=== PATIENT | female | born 1945 | race Caucasian/White ===

== ENCOUNTER → 2017-09-24 | Day surgery (SDC) | payer OTHER ==
[2017-09-21 14:57] LABS: BASOPHILS % 0.5 % (0.0-1.0); EOSINOPHILS # (AUTO) 0.1 (0.0-0.4); EOSINOPHILS % 1.4 % (0.0-6.0); HEMATOCRIT 38.8 % (34.2-44.1); HEMOGLOBIN 13.2 g/dL (12.0-16.0); LYMPHOCYTES # (AUTO) 1.6 (1.0-3.2); LYMPHOCYTES % 18.5 % (18.0-39.1); MEAN CORPUSCULAR HEMOGLOBIN 30.7 pg (28-32); MEAN CORPUSCULAR VOLUME 90.2 fL (81-99); MONOCYTES # (AUTO) 0.5 (0.2-0.8); MONOCYTES % 6.1 % (4.4-11.3); NEUTROPHILS # (AUTO) 6.2 (2.1-6.9); NEUTROPHILS % 73.3 % (38.7-80.0); PLATELET COUNT 223 x10e3/uL (140-360); RED CELL DISTRIBUTION WIDTH 13.2 % (11.7-14.4)
[2017-09-21 15:15] LABS: ANION GAP 13.8 mmol/L (8-16); CREATININE, SERUM 1.18 mg/dL (0.57-1.11); POTASSIUM 3.8 mmol/L (3.5-5.1)
[2017-09-21 15:16] LABS: CALCIUM 8.9 mg/dL (8.4-10.2)
--- NOTE | 2017-09-21 16:01 | Diagnostic Imaging Report ---
PROCEDURE:CHEST 2 VIEWS TECHNIQUE:PA and lateral chest INDICATION:Preoperative evaluation COMPARISON:None. FINDINGS: Lungs are clear and symmetrically inflated. No pleural effusions. Normal heart size, mediastinal contour and pulmonary vasculature. Postoperative sequela of CABG, with intact midline wires. Intact skeleton. Benign-appearing sclerotic lesion in the proximal right humerus. CONCLUSION: No acute abnormality. Dictated by: James Oliveira M.D. on 09/21/2017 at 16:01 Electronically approved by: James Oliveira M.D. on 09/21/2017 at 16:01
[~2017-09-24] MED LIST: BELLADONNA/OPIUM 60 MG SUPP PR ONE; CEFTRIAXONE SOD 1 GM VIAL ONE; DEXAMETHASONE SOD PHOS INJ 4 MG/ML VIAL ONE; EPHEDRINE SULFATE INJ 50 MG/10 ML SYR ONE; FENTANYL CITRATE/PF 100MCG/2 ML INJ ONE; FLOMAX0.4 MG PO; GLYCOPYRROLATE INJ 1MG/ 5 ML SYR ONE; IOPAMIDOL 300MG/ML 50ML INFUS..BTL IV ONE; LEVEMIR100 UNIT/1 SC; LIDOCAINE HCL 2% LOCAL INJ 5 ML SDV VIAL INJ ONE; LISINOPRIL10 MG PO; METFORMIN HCL500 M2 PO; METOPROLOL TART25 MG PO; MIDAZOLAM HCL 2 MG/2 ML VIAL ONE; ONDANSETRON HCL INJ 2 MG/ML VIAL ONE; PRAVASTATIN SOD40 MG PO; PROPOFOL IV EMULSION 10 MG/ML 20 ML VIAL ONE; SEVOFLURANE INHAL SOLN 250 ML PEN BTL ONE; ULTRAM 50MG50 MG PO
--- OUTSIDE RECORDS SUMMARY | 2017-09-25 09:51 | XMS REPORT ---
Author [facility] Address Unknown Phone Unavailable Care Team Providers Care Drafter Name Role Phone VICKY ARREGUIN Unavailable Unavailable Problems This patient has no known problems. Allergies, Adverse Reactions, Alerts This patient has no known allergies or adverse reactions. Medications This patient has no known medications. Results Test Description Test Time Test Comments Text Results Atomic Results Result Comments CHEST 2 VIEWS [place] [id number] Patient Name: MEIR YADAV MR #: [id number] : 1945 Age/Sex: 72/F Req # : [id number] Adm Physician: Ordered by: VICKY ARREGUIN MD Report #: [id number] Location: OR Room/Bed: Procedure: [id number] DX/CHEST 2 VIEWS Exam Date: 09/21/17 Exam Time : 1546 REPORT STATUS: Signed PROCEDURE: CHEST 2 VIEWS TECHNIQUE: PA and lateral chest INDICATION: Preoperative evaluation COMPARISON: None. FINDINGS: Lungs are clear and symmetrically inflated. No pleural effusions. Normal heart size, mediastinal contour and pulmonary vasculature. Postoperative sequela of CABG, with intact midline wires. Intact skeleton. Benign-appearing sclerotic lesion in the proximal right humerus. CONCLUSION: No acute abnormality. Dictated by: Zoë Oliveira M.D. on 09/21/2017 at 16:01 Electronically approved by: Zoë Oliveira M.D. on 09/21/2017 at 16:01 Dictated By: ZOË OLIVEIRA MD 1601 Transcribed By: EYAL on 09/21/17 1601 COPY TO: VICKY ARREGUIN MD
--- OUTSIDE RECORDS SUMMARY | 2017-09-25 09:51 | XMS REPORT ---
Author Organization Unknown Address [address] [place] [address] Phone [phone] Care Team Providers Care Aeroplane Pilot Name Role Phone ADALI "RIMMA" LESLIE OVALLE 3 [phone] NORBERTO MARK MD 115 [phone] ARSLAN EVANS 59 Unavailable Allergies Code Code System Name Reaction Severity Status Onset 369836 RxNorm Bactrim Active Notes: MORPHINE- DOES NOT WORK Medications Name Status Start Date Stop Date acetaminophen 300 mg-codeine 30 mg tablet Completed 01/07/2017 Contour Next EZ Meter Completed 01/19/2017 Contour Next Strips Active Not available Eliquis 5 mg tablet Completed 06/17/2017 esomeprazole magnesium 40 mg capsule,delayed release Active Not available fluorouracil 5 % topical cream Completed 01/19/2017 gabapentin 100 mg capsule Completed 02/04/2017 hyoscyamine 0.125 mg sublingual tablet Completed 01/07/2017 Januvia 100 mg tablet Completed 01/19/2017 Levemir FlexTouch U-100 Insulin 100 unit/mL (3 mL) subcutaneous pen Active Not available lisinopril 20 mg tablet Active Not available metformin 500 mg tablet Active Not available metoprolol succinate ER 25 mg tablet,extended release 24 hr Completed metoprolol tartrate 25 mg tablet Active Not available metronidazole 500 mg tablet Take 1 tablet 3 times a day by oral route for 10 days. Completed 2016 Microlet Lancet Active Not available naproxen 500 mg tablet Take 1 tablet twice a day by oral route. Completed 01/19/2017 Neurontin 300 mg capsule Take 1 capsule 3 times a day by oral route. Completed 06/17/2017 nitrofurantoin monohydrate/macrocrystals 100 mg capsule Completed 2016 ondansetron 8 mg disintegrating tablet Completed 01/07/2017 Pen Needle 29 gauge x 1/2" TAKE DIRECTED Active Not available pravastatin 40 mg tablet Completed 08/31/2017 promethazine 12.5 mg tablet Take 1 tablet 4 times a day by oral route for 10 days. Completed 2017 promethazine 25 mg tablet Take 1 tablet every 4 hours by oral route. Completed 05/12/2016 Relion Pen 29 X 1/2" [facility] [place] Completed 05/12/2016 rosuvastatin 40 mg tablet Active Not available sodium citrate-citric acid 500 mg-334 mg/5 mL oral solution take 1 tablespoon by mouth twice a day Completed 01/07/2017 Soma 350 mg tablet Take 1 tablet every day by oral route at bedtime for 30 days. Active 2017 Not available sulfamethoxazole 800 mg-trimethoprim 160 mg tablet Completed 01/07/2017 tamsulosin 0.4 mg capsule Active Not available tramadol 50 mg tablet Active Not available triamcinolone acetonide 0.1 % lotion Active Not available triamcinolone acetonide 0.1 % topical cream Apply 1 g every day by topical route as needed for 15 days. Active Not available Problems Name Status Onset Date Source Type 2 Diabetes Mellitus Unknown 05/12/2016 Hypercholesterolemia Unknown 05/12/2016 Malignant Hypertensive Chronic Kidney Disease Active 05/12/2016 Kidney Disease Unknown 05/12/2016 Atherosclerosis of Aorta Active 01/19/2017 Pancreatitis Active 01/26/2017 Type 2 Diabetes Mellitus Active 06/17/2017 Hyperlipidemia Active 06/17/2017 Procedures Date Name Performed by Colonoscopy Notes: 2010 Information not available Hysterectomy (Partial) Notes: 1977 Information not available 05/12/2016 MAMMO, Screening, Digital, Bilateral [facility] ([facility]) [address] [place] [address] (Work Place) 05/12/2016 Electrocardiogram [facility] [address] [facility] [address] [place] [id number] (Work Place) 05/12/2016 Bone Density [facility] ([facility]) [address] [place], [place] [id number] (Work Place) 06/26/2016 CT, Abdomen + Pelvis, W/ Contrast Information not available 07/08/2016 CT, Abdomen + Pelvis, W/wo Contrast Information not available 01/07/2017 MAMMO, Screening, Bilateral [facility] ([facility]) [address] [place], [place] [id number] (Work Place) 01/07/2017 Bone Density [facility] ([facility]) [address] [place] [address] (Work Place) 08/31/2017 CT, Abdomen + Pelvis, W/ Contrast [facility] ([facility]) [address] [place] [address] (Work Place) Notes: PARTIAL CERVIXECTOMY - 1961 L URETERAL STENT - DR. MARK S/P TRIPLE BYPASS - 1998 PARATHYROIDECTOMY - 2005 LAP-SUGEY - 02/2016 Lab Results Date Name Specimen Result Interpretation Description Value Range Status Address 08/31/2017 Culture, Urine Culture, Urine, Routine see note Final [facility]: [address] [place] [address], [place] 08/31/2017 Urinalysis, Dipstick Color Color light yellow [facility]: [address] [facility] [address], [place] Color Appearance clear [facility]: [address] [facility] [address], [place] Color Glucose negative [facility]: [address] [facility] [address], [place] Color Bilirubin negative [facility]: [address] [facility] [address], [place] Color Ketones negative [facility] [address] [facility] [address], [place] Color Specific [place] 1.025 [facility]: [address] [facility] [address], [place] Color Blood moderate [facility] [address] [facility] [address], [place] Color PH 6.5 [facility]: [address] [facility] [address], [place] Color Protein 100 [facility]: [address] [facility] [address], [place] Color Urobilinogen 0.2 [facility]: [address] [facility] [address], [place] Color Nitrites negative [facility]: [address] [facility] [address], [place] Color Leukocytes small [facility]: [address] [facility] [address], [place] 06/17/2017 HbA1C (Hemoglobin a1C), Blood High Hemoglobin a1C 6.2 % of total HGB <5.7 % of total HGB Final [facility]: [address] [place] [address], [place] EAG (mg/dL) 131 (calc) Final [facility]: [address] [place] [address], [place] EAG (mmol/L) 7.3 (calc) Final [facility]: [address] [facility] [address], [place] 06/17/2017 CBC W/ Auto Diff Normal White Blood Cell Count 7.9 thousand/uL 3.8-10.8 thousand/uL Final [facility]: [address] Normal Red Blood Cell Count 4.89 million/uL 3.80-5.10 million/ uL Final [facility]: [address] Normal Hemoglobin 14.1 g/dL 11.7-15.5 g/dL Final [facility]: [address] Normal Hematocrit 42.9 % 35.0-45.0 % Final [facility]: [address] [place] Normal Mcv 87.7 fL 80.0-100.0 fL Final [facility]: [address] Normal Mch 28.8 pg 27.0-33.0 pg Final [facility]: [address] [place] Normal Mchc 32.9 g/dL 32.0-36.0 g/dL Final [facility]: [address] Normal [address]w 13.6 % 11.0-15.0 % Final [facility]: [address] [place] Normal Platelet Count 266 thousand/uL 140-400 thousand/uL Final [facility]: [address] Normal Mpv 11.2 fL 7.5-12.5 fL Final [facility]: [address] Normal Absolute Neutrophils 4819 cells/uL 9449-3168 cells/uL Final [facility]: [address] Normal Absolute Lymphocytes 2204 cells/uL 850-3900 cells/uL Final [facility]: [address] Normal Absolute Monocytes 553 cells/uL 200-950 cells/uL Final [facility]: [address] [place] Normal Absolute Eosinophils 261 cells/uL 15-500 cells/uL Final [facility]: [address] Normal Absolute Basophils 63 cells/uL 0-200 cells/uL Final [facility]: [address] Normal Neutrophils 61 % Final [facility]: [address] [place] Normal Lymphocytes 27.9 % Final [facility]: [address], [place] Normal Monocytes 7.0 % Final [facility]: [address], [place] Normal Eosinophils 3.3 % Final [facility]: [address], [place] Normal Basophils 0.8 % Final [facility]: [address] [facility] 06/17/2017 CMP, Serum or Plasma High Glucose 116 mg/dL 65-99 mg/ dL Final [facility]: [address], [place] Normal Urea Nitrogen (BUN) 13 mg/dL 7-25 mg/dL Final [facility]: [address] Normal Creatinine 0.93 mg/dL 0.60-0.93 mg/dL Final [facility]: [address] Normal eGFR Non-afr. Chilean 61 mL/min/1.73m2 > or=60 mL/min/ 1.73m2 Final [facility]: [address] Normal eGFR 70 mL/min/1.73m2 > or=60 mL/min/ 1.73m2 Final [facility]: [address] BUN/creatinine Ratio not applicable (calc) 6-22 (calc) Final [facility] [address] [facility] Normal Sodium 142 mmol/L 135-146 mmol/L Final [facility]: [address] [place] [address] Normal Potassium 4.5 mmol/L 3.5-5.3 mmol/L Final [facility]: [address] [facility] Normal Chloride 103 mmol/L 98-110 mmol/L Final [facility]: [address] [place] [address] Normal Carbon Dioxide 29 mmol/L 20-31 mmol/L Final [facility]: [address] [facility] Normal Calcium 10.2 mg/dL 8.6-10.4 mg/dL Final [facility]: [address] [facility] Normal Protein, Total 7.1 g/dL 6.1-8.1 g/dL Final [facility]: [address] Normal Albumin 4.5 g/dL 3.6-5.1 g/dL Final [facility]: [address] Normal Globulin 2.6 g/dL (calc) 1.9-3.7 g/dL (calc) Final [facility]: [address] Normal Albumin/globulin Ratio 1.7 (calc) 1.0-2.5 (calc) Final [facility]: [address] Normal Bilirubin, Total 0.3 mg/dL 0.2-1.2 mg/dL Final [facility]: [address] Normal Alkaline Phosphatase 83 U/L 33-130 U/L Final [facility]: [address] Normal Ast 21 U/L 10-35 U/L Final [facility]: [address] Normal Alt 17 U/L 6-29 U/L Final [facility]: [address] 06/17/2017 Lipid Panel, Serum High Cholesterol, Total 226 mg/dL < 200 mg/dL Final [facility]: [address] Low HDL Cholesterol 42 mg/dL >50 mg/dL Final [facility]: [address] High Triglycerides 208 mg/dL <150 mg/dL Final [facility]: [address] High LDL-cholesterol 149 mg/dL (calc) Final [facility]: [address] High Chol/hdlc Ratio 5.4 (calc) <5.0 (calc) Final [facility]: [address] High Non HDL Cholesterol 184 mg/dL (calc) <130 mg/dL (calc) Final [facility]: [address] 06/17/2017 TSH, Serum or Plasma Normal Tsh 2.81 mIU/L 0.40-4.50 mIU/L Final [facility]: [address] 06/17/2017 Culture, Urine Culture, Urine, Routine see note Final [facility]: [address] 06/17/2017 Urinalysis, Dipstick Color Color yellow p- [facility]: [address] [facility] [address], [place] Color Appearance clear [facility]: [address] [facility], [place] Color Glucose negative [facility]: [address] [facility], [place] Color Bilirubin negative [facility] [address] [facility] [address], [place] Color Ketones negative [facility]: [address] [facility], [place] Color Specific [place] 1.015 [facility]: [address] [facility] [address], [place] Color Blood moderate [facility]: [address] [facility] [address], [place] Color PH 7.0 [facility]: [address] [facility], [place] Color Protein 30 [facility]: [address] [facility] [address], [place] Color Urobilinogen 0.2 [facility]: [address] [facility] [address], [place] Color Nitrites negative [facility]: [address] [facility] [address], [place] Color Leukocytes small [facility]: [address] [facility] [address], [place] 02/04/2017 Culture, Urine Culture, Urine, Routine see note [facility]: [address] 01/19/2017 Amylase, Serum or Plasma Normal Amylase 50 U/L 21-101 U /L [facility]: [address] 01/19/2017 Erythrocyte Sedimentation Rate by Westergren Method Normal Sed Rate by Modified Westergren 2 mm/h < or=30 mm/h [facility]: [address] 01/19/2017 Tech Slide Review Normal White Blood Cell Count 7.4 thousand/uL 3.8-10.8 thousand/uL [facility]: [address] Normal Red Blood Cell Count 4.43 million/uL 3.80-5.10 million/ uL [facility]: [address] Normal Hemoglobin 13.1 g/dL 11.7-15.5 g/dL [facility]: [address] Normal Hematocrit 39.8 % 35.0-45.0 % [facility]: [address] Normal Mcv 89.8 fL 80.0-100.0 fL Final [facility]: [address] Normal Mch 29.6 pg 27.0-33.0 pg Final [facility]: [address] [place] Normal Mchc 32.9 g/dL 32.0-36.0 g/dL Final [facility]: [address] [place] Normal Rdw 13.1 % 11.0-15.0 % Final [facility]: [address] [place] Normal Platelet Count 232 thousand/uL 140-400 thousand/uL Final [facility]: [address] [place] Normal Mpv 10.4 fL 7.5-12.5 fL Final [facility]: [address] Normal Absolute Neutrophils 5106 cells/uL 5776-9100 cells/uL Final [facility]: [address] [place] Normal Absolute Lymphocytes 1776 cells/uL 850-3900 cells/uL Final [facility]: [address] [place] Normal Absolute Monocytes 370 cells/uL 200-950 cells/uL Final [facility]: [address] [place] Normal Absolute Eosinophils 148 cells/uL 15-500 cells/uL Final [facility]: [address] [place] Normal Absolute Basophils 0 cells/uL 0-200 cells/uL Final [facility]: [address] Normal Neutrophils 69 % Final [facility]: [address] [place] Normal Lymphocytes 24 % Final [facility]: [address] [place] Normal Monocytes 5 % Final [facility]: [address] [place] Normal Eosinophils 2 % Final [facility]: [address] [place] Normal Basophils 0 % Final [facility]: [address] [place] Comment(s) Final [facility]: [address] [place] 01/19/2017 Lipase, Serum or Plasma Normal Lipase 48 U/L 7-60 U/L Final [facility]: [address] [place] 01/07/2017 Amylase, Serum or Plasma Normal Amylase 61 U/L 21-101 U /L Final [facility]: [address] [place] 01/07/2017 Lipid Panel, Serum Normal Cholesterol, Total 190 mg/dL 125-200 mg/dL Final [facility]: [address] [place] Low HDL Cholesterol 45 mg/dL > or=46 mg/dL Final [facility]: [address] [place] High Triglycerides 162 mg/dL <150 mg/dL Final [facility]: [address] [facility] Normal LDL-cholesterol 113 mg/dL (calc) <130 mg/dL (calc) Final [facility]: [address] [place] Normal Chol/hdlc Ratio 4.2 (calc) < or=5.0 (calc) Final [facility]: [address] [place] Normal Non HDL Cholesterol 145 mg/dL (calc) Final [facility]: [address] [facility] 01/07/2017 CBC W/ Auto Diff Normal White Blood Cell Count 9.4 thousand/uL 3.8-10.8 thousand/uL Final [facility]: [address] Normal Red Blood Cell Count 4.90 million/uL 3.80-5.10 million/ uL Final [facility]: [address] Normal Hemoglobin 14.7 g/dL 11.7-15.5 g/dL Final [facility]: [address] [place] Normal Hematocrit 44.1 % 35.0-45.0 % Final [facility]: [address] [facility] Normal Mcv 90.0 fL 80.0-100.0 fL Final [facility]: [address] [place] Normal Mch 30.0 pg 27.0-33.0 pg Final [facility]: [address] [facility] Normal Mchc 33.3 g/dL 32.0-36.0 g/dL Final [facility]: [address] [facility] Normal Rdw 12.9 % 11.0-15.0 % Final [facility]: [address] Normal Platelet Count 287 thousand/uL 140-400 thousand/uL Final [facility]: [address] [place] Normal Mpv 11.1 fL 7.5-12.5 fL Final [facility]: [address] [place] Normal Absolute Neutrophils 6618 cells/uL 3760-9890 cells/uL Final [facility]: [address] [place] Normal Absolute Lymphocytes 1861 cells/uL 850-3900 cells/uL Final [facility]: [address] [place] Normal Absolute Monocytes 583 cells/uL 200-950 cells/uL Final [facility]: [address] [facility] Normal Absolute Eosinophils 282 cells/uL 15-500 cells/uL Final [facility]: [address] [place] Normal Absolute Basophils 56 cells/uL 0-200 cells/uL Final [facility]: [address] [place] Normal Neutrophils 70.4 % Final [facility]: [address] [place] Normal Lymphocytes 19.8 % Final [facility] [address] [facility] Normal Monocytes 6.2 % Final [facility]: [address] [place] Normal Eosinophils 3.0 % Final [facility]: [address] [facility] Normal Basophils 0.6 % Final [facility]: [address] [facility] 01/07/2017 Lipase, Serum or Plasma High Lipase 135 U/L 7-60 U/L Final [facility]: [address] [facility] 01/07/2017 CMP, Serum or Plasma High Glucose 144 mg/dL 65-99 mg/ dL Final [facility]: [address] [facility] Normal Urea Nitrogen (BUN) 14 mg/dL 7-25 mg/dL Final [facility]: [address] [facility] Normal Creatinine 0.93 mg/dL 0.60-0.93 mg/dL Final [facility]: [address] [facility] Normal eGFR Non-afr. Chilean 61 mL/min/1.73m2 > or=60 mL/min/ 1.73m2 Final [facility]: [address] [facility] Normal eGFR 71 mL/min/1.73m2 > or=60 mL/min/ 1.73m2 Final [facility]: [address] [facility] BUN/creatinine Ratio not applicable (calc) 6-22 (calc) Final [facility]: [address] Normal Sodium 139 mmol/L 135-146 mmol/L Final [facility]: [address] [facility] Normal Potassium 4.1 mmol/L 3.5-5.3 mmol/L Final [facility]: [address] Normal Chloride 104 mmol/L 98-110 mmol/L Final [facility]: [address] [facility] Normal Carbon Dioxide 26 mmol/L 20-31 mmol/L Final [facility]: [address] [facility] Normal Calcium 9.7 mg/dL 8.6-10.4 mg/dL Final [facility]: [address] Normal Protein, Total 7.3 g/dL 6.1-8.1 g/dL Final [facility]: [address] Normal Albumin 4.6 g/dL 3.6-5.1 g/dL Final [facility]: [address] Normal Globulin 2.7 g/dL (calc) 1.9-3.7 g/dL (calc) Final [facility]: [address] [facility] Normal Albumin/globulin Ratio 1.7 (calc) 1.0-2.5 (calc) Final [facility]: [address] [facility] Normal Bilirubin, Total 0.4 mg/dL 0.2-1.2 mg/dL Final [facility]: [address] Normal Alkaline Phosphatase 87 U/L 33-130 U/L Final [facility]: [address] [facility] Normal Ast 18 U/L 10-35 U/L Final [facility]: [address] [facility] Normal Alt 14 U/L 6-29 U/L Final [facility]: [address] [facility] 01/07/2017 Erythrocyte Sedimentation Rate by Westergren Method Normal Sed Rate by Modified Westergren 9 mm/h < or=30 mm/h Final [facility]: [address] [place] [address], [place] 01/07/2017 HbA1C (Hemoglobin a1C), Blood High Hemoglobin a1C 6.2 % of total HGB <5.7 % of total HGB Final [facility]: [address] EAG (mg/dL) 131 (calc) Final [facility]: [address] EAG (mmol/L) 7.3 (calc) Final [facility]: [address] [address], [place] 01/07/2017 Culture, Urine Culture, Urine, Routine Final [facility]: [address] [place] [address], [place] 01/07/2017 H Pylori Urea Breath Test, Co2 Infrared Normal Helicobacter Pylori, Urea Breath Test not detected not detected Final [facility]: [address] [place] [address], [place] 06/26/2016 Culture, Urine Culture, Urine, Routine Final [facility] [facility]: [address] [place] [address], [place] 05/12/2016 Lipid Panel, Serum High Cholesterol, Total 215 mg/dL 125-200 mg/dL Final [facility]: [address] [facility], [place] Normal HDL Cholesterol 55 mg/dL > or=46 mg/dL Final [facility]: [address] [facility], [place] Normal Triglycerides 114 mg/dL <150 mg/dL Final [facility]: [address] [facility], [place] High LDL-cholesterol 137 mg/dL (calc) <130 mg/dL (calc) Final [facility]: [address] [facility], [place] Normal Chol/hdlc Ratio 3.9 (calc) < or=5.0 (calc) Final [facility]: [address] [facility], [place] High Non HDL Cholesterol 160 mg/dL (calc) Final [facility]: [address] [facility], [place] 05/12/2016 CMP, Serum or Plasma High Glucose 102 mg/dL 65-99 mg/ dL Final [facility]: [address] [facility], [place] Normal Urea Nitrogen (BUN) 14 mg/dL 7-25 mg/dL Final [facility]: [address] [facility], [place] Normal Creatinine 0.80 mg/dL 0.60-0.93 mg/dL Final [facility]: [address] [facility], [place] Normal eGFR Non-afr. Chilean 73 mL/min/1.73m2 > or=60 mL/min/ 1.73m2 Final [facility]: [address] [facility], [place] Normal eGFR 85 mL/min/1.73m2 > or=60 mL/min/ 1.73m2 Final [facility]: [address] [facility], [place] BUN/creatinine Ratio not applicable (calc) 6-22 (calc) Final [facility]: [address] [facility], [place] Normal Sodium 141 mmol/L 135-146 mmol/L Final [facility]: [address] [facility], [place] Normal Potassium 4.0 mmol/L 3.5-5.3 mmol/L Final [facility]: [address] [facility], [place] Normal Chloride 103 mmol/L 98-110 mmol/L Final [facility]: [address] [facility], [place] Normal Carbon Dioxide 31 mmol/L 20-31 mmol/L Final [facility]: [address] [facility], [place] Normal Calcium 8.9 mg/dL 8.6-10.4 mg/dL Final [facility]: [address] [facility], [place] Normal Protein, Total 7.2 g/dL 6.1-8.1 g/dL Final [facility]: [address] [facility], [place] Normal Albumin 4.5 g/dL 3.6-5.1 g/dL Final [facility]: [address] [facility], [place] Normal Globulin 2.7 g/dL (calc) 1.9-3.7 g/dL (calc) Final [facility]: [address] [facility], [place] Normal Albumin/globulin Ratio 1.7 (calc) 1.0-2.5 (calc) [facility]: [address] [facility], [place] Normal Bilirubin, Total 0.4 mg/dL 0.2-1.2 mg/dL Final [facility]: [address] [facility], [place] Normal Alkaline Phosphatase 75 U/L 33-130 U/L Final [facility]: [address] [facility], [place] Normal Ast 24 U/L 10-35 U/L Final [facility]: [address] [facility], [place] Normal Alt 22 U/L 6-29 U/L Final [facility]: [address], [place] 05/12/2016 CBC W/ Auto Diff Normal White Blood Cell Count 8.7 thousand/uL 3.8-10.8 thousand/uL Final [facility]: [address] [facility], [place] Normal Red Blood Cell Count 4.64 million/uL 3.80-5.10 million/ uL Final [facility]: [address] [facility], [place] Normal Hemoglobin 13.8 g/dL 11.7-15.5 g/dL Final [facility]: [address] [place] [address], [place] Normal Hematocrit 42.1 % 35.0-45.0 % Final [facility]: [address] [place] [address], [place] Normal Mcv 90.7 fL 80.0-100.0 fL Final [facility]: [address] [place] [address], [place] Normal Mch 29.8 pg 27.0-33.0 pg Final [facility]: [address] [facility], [place] Normal Mchc 32.9 g/dL 32.0-36.0 g/dL Final [facility]: [address] [place] [address], [place] Normal Rdw 14.4 % 11.0-15.0 % Final [facility]: [address] [facility], [place] Normal Platelet Count 208 thousand/uL 140-400 thousand/uL Final [facility]: [address] [facility], [place] Normal Mpv 9.4 fL 7.5-11.5 fL Final [facility]: [address] [facility], [place] Normal Absolute Neutrophils 6273 cells/uL 6279-8096 cells/uL Final [facility]: [address] [facility], [place] Normal Absolute Lymphocytes 1714 cells/uL 850-3900 cells/uL Final [facility]: [address] [place] [address], [place] Normal Absolute Monocytes 522 cells/uL 200-950 cells/uL Final [facility]: [address], [place] Normal Absolute Eosinophils 148 cells/uL 15-500 cells/uL Final [facility]: [address], [place] Normal Absolute Basophils 44 cells/uL 0-200 cells/uL Final [facility]: [address], [place] Normal Neutrophils 72.1 % Final [facility]: [address], [place] Normal Lymphocytes 19.7 % Final [facility]: [address], [place] Normal Monocytes 6.0 % Final [facility]: [address], [place] Normal Eosinophils 1.7 % Final [facility]: [address], [place] Normal Basophils 0.5 % Final [facility]: [address], [place] Urinalysis, Dipstick Color Color dark yellow [facility]: [address] [facility] [address], [place] Color Appearance cloudy [facility]: [address] [facility] [address], [place] Color Glucose negative [facility]: [address] [facility] [address], [place] Color Bilirubin negative [facility]: [address] [facility] [address], [place] Color Ketones negative [facility]: [address] [facility] [address], [place] Color Specific [place] 1.020 [facility]: [address] [facility] [address], [place] Color Blood moderate [facility]: [address] [facility] [address], [place] Color PH 6.5 [facility]: [address] [facility] [address], [place] Color Protein 100 [facility]: [address] [facility] [address], [place] Color Urobilinogen 1 [facility]: [address] [facility] [address], [place] Color Nitrites negative [facility]: [address] [facility] [address], [place] Color Leukocytes trace [facility]: [address] [facility], [place] Albumin:creatinine Ratio, Urine Type A:C Ratio <30 mg/g (Normal ) [facility]: [address] [facility] [address], [place] Type Urine Creatinine 200 mg/dL [facility]: [address] [facility] [address], [place] Type Urine Microlalbumin 30 mg/L [facility]: [address] [facility] [address], [place] Urinalysis, Dipstick Color Color dark yellow [facility]: [address], [place] Color Appearance cloudy [facility]: [address], [place] Color Glucose negative [facility]: [address], [place] Color Bilirubin negative [facility]: [address], [place] Color Ketones negative [facility] [address], [place] Color Specific [place] 1.025 [facility]: [address], [place] Color Blood large [facility]: [address], [place] Color PH 6.0 [facility]: [address], [place] Color Protein 300 [facility]: [address], [place] Color Urobilinogen 0.2 [facility]: [address], [place] Color Nitrites negative [facility]: [address], [place] Color Leukocytes trace [facility]: [address], [place] Urinalysis, Dipstick Color Color yellow [facility] : [address], [place] Color Appearance clear [facility]: [address], [place] Color Glucose negative [facility]: [address], [place] Color Bilirubin negative [facility]: [address], [place] Color Ketones negative [facility]: [address], [place] Color Specific [place] 1.020 [facility]: [address], [place] Color Blood moderate [facility]: [address], [place] Color PH 6.5 [facility]: [address], [place] Color Protein 30 [facility]: [address], [place] Color Urobilinogen 0.2 [facility] [place]: [address], [place] Color Nitrites negative [facility]: [address], [place] Color Leukocytes small [facility]: [address], [place] Urinalysis, Dipstick Urine Color Color yellow [facility]: [address], [place] Urine Color Appearance cloudy [facility]: [address], [place] Urine Color Glucose negative [facility]: [address] [facility] [address], [place] Urine Color Bilirubin negative [facility]: [address] [facility] [address], [place] Urine Color Ketones negative [facility]: [address] [facility] [address], [place] Urine Color Specific [place] 1.020 [facility]: [address] [facility] [address], [place] Urine Color Blood moderate [facility]: [address] [facility] [address], [place] Urine Color PH 7.0 [facility]: [address] [facility] [address], [place] Urine Color Protein negative [facility]: [address] [facility] [address], [place] Urine Color Urobilinogen 0.2 [facility]: [address] [facility] [address], [place] Urine Color Nitrites negative [facility]: [address] [facility] [address], [place] Urine Color Leukocytes negative [facility]: [address] [facility] [address], [place] Electrocardiogram Rate & Rhythm [facility]: [address] [facility] [address], [place] Qrs [facility]: [address] [facility] [address], [place] Interval [facility]: [address] [place] [address], [place] QRS Duration [facility]: [address] [place] [address], [place] QT Interval [facility]: [address] [facility] [address], [place] Past Encounters 09/15/2017 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 09/10/2017 Arslan Evans: 9055 [facility], [address] [address], Ph. [phone] 08/31/2017 Malignant Hypertensive Chronic Kidney Disease; Paroxysmal Atrial Fibrillation; Atherosclerosis of Aorta; Type 2 Diabetes Mellitus; Renal Colic; Contact Dermatitis Due to Poison Юлия; Basal Cell Carcinoma of Skin; Mixed Hyperlipidemia Adali Palmer MD: [address] [facility], [address] [address], Ph. 06/17/2017 Kidney Stone; Type 2 Diabetes Mellitus; Hyperlipidemia; Malignant Hypertensive Chronic Kidney Disease; Body Mass Index 20-24 - Normal Annika Muñoz MD: [address] [address], Ph. 02/04/2017 Blood in Urine; Kidney Stone; Nausea and Vomiting MALIKA Coombs: [address] [address], Ph. 02/03/2017 Fara Paige: [address] [address], Ph. [phone] 01/26/2017 Follow-up Visit; Paroxysmal Atrial Fibrillation; Malignant Hypertensive Chronic Kidney Disease; Pancreatitis MALIKA Coombs: [address] [address], Ph. 01/19/2017 Follow-up Visit; Pancreatitis; Malignant Hypertensive Chronic Kidney Disease; Atherosclerosis of Aorta; Type 2 Diabetes Mellitus; Hypercholesterolemia Adali Palmer MD: [address] [address], Ph. 01/15/2017 Fara Paige: [address] [address], Ph. 01/07/2017 Adult Health Examination; Body Mass Index Less than 20; Abdominal Pain; Type 2 Diabetes Mellitus; Malignant Hypertensive Chronic Kidney Disease; Hypercholesterolemia; Pigmented Skin Lesion; Actinic Keratosis; Acute Urinary Tract Infection; Screening for Malignant Neoplasm of Colon; Screening for Malignant Neoplasm of Breast; Screening for Osteoporosis; Immunization Adali Palmer MD: [address] [address], Ph. 10/01/2016 Blood in Urine; Malignant Hypertensive Chronic Kidney Disease; Type 2 Diabetes Mellitus Adali Palmer MD: [address] [address], Ph. 07/16/2016 History of Calculus of Kidney Adali Palmer MD: [address] [address], Ph. 06/26/2016 Abdominal Pain; Blood in Urine; Type 2 Diabetes Mellitus; Cramp in Lower Limb Adali Palmer MD: [address]339 [facility], [address], [place] [address], Ph. 05/12/2016 Adult Health Examination; Benign Hypertension; Type 2 Diabetes Mellitus; Immunization; Screening for Malignant Neoplasm of Breast; Screening for Osteoporosis; Screening for Malignant Neoplasm of Colon; Depression Screening; Hypercholesterolemia; Actinic Keratosis Adali Palmer MD: [address]399 [facility], [address], [place] [address], Ph. Social History Smoking Status Former Smoker Notes: smoked for 45 years quit11 years ago Vaccine List Vaccine Type influenza, high dose seasonal 05/12/20160.5 mL pneumococcal conjugate PCV 13 01/07/20170.5 mL Tdap 01/07/20170.5 mL Plan of Care Patient Instructions Problem: The patient has a diagnosis of DIABETES Goal:The patients condition will be managed in the outpatient setting and the patients blood sugar will be within normal range. Interventions: -Educate the pt on the importance of blood glucose monitoring daily, keeping a log and taking medications as prescribed. - Educate the importance of eating small healthy meals such as fish chicken, complex carbohydrates-legumes, and whole grains, to stabilize blood sugars. ( Refer to school janitor if appropriate) -Educate pt on the s/s of hypoglycemia such as vertigo, STOLL, confusion, weakness , anxiety, nervousness, light headed, sweaty, hungry and rapid HR. -Educate patient if blood sugar is <70 or if having any symptoms of hypoglycemia, take one of followin/2 can of regular soda pop, 1 tablespoon of sugar, 1/2 cup of orange juice, or 1 cup of milk. -Educate pt on the S/S of hyperglycemia such as blurred vision, fatigue, STOLL, frequent urination, increased thirst. -Educate the pt that a HgAIC is an average of their blood glucose levels over the past 3 months and that it is important to have lab draw q3-6 months. -Educate the patient that they will need to maintain a BP of <140/80. -Educate the patient on importance of annual flu and pneumonia vaccinations -Educate the patient on importance of following up with their provider at least every 6mo to manage chronic condition. -Educate pt that they will need a dilated eye exam and a comprehensive foot exam yearly, and a daily self exam of their feet.(check for dry, cracked skin, look for blisters, cuts scratches, or other sores, check for redness, increased warmth or tenderness when you touch an area, watch for ingrown toenails, corns, and calluses) -Educate pt that they will need a lipid profile yearly,(women)HDL>50LDL<100/TG< 150/HDL>40 (men) -Explain risk factors of adjunct faculty for medical terminology complications of uncontrolled diabetes, which include: nerve damage to extremities, amputations, skin infections, kidney and heart dysfunction, dementia, cataracts and pneumonia. -Educate on an exercise routine. At least 30 min of aerobic exercise, 3-5 times a week. (unless an activity restriction from the provider) -Educate patient to eat a low glycemic diet, divide your plate into 3 sections , 50% vegetables such as broccoli, lettuce, 1/4 protein such as chicken, fish, and 1/4 carbohydrates such as pasta, potatoes. -Educate the patient on consistent glucose monitoring and when to report values to the provider. Contact Provider if blood glucose is consistently > 240 after taking medications, or if blood glucose is < 60 or patient is symptomatic after interventions. Problem: Pain related to Kidney Stones Goal: The patient will report relief and controlled pain to a tolerable level of 0-2/10 Interventions: - Take pain medications as ordered. - f/u eliot with specialist - Notify physician of any changes in level or frequency of pain, any increase in use of prn pain meds and any noted side effects of pain medication - Educate pt on alternative non-pharmacological interventions such as: distraction, cool/warm compress, massage, warm shower, music, relaxation, and rest. Reminders Provider Appointments None recorded. Lab None recorded. Referral None recorded. Procedures None recorded. Surgeries None recorded. Imaging None recorded. Vitals 09/15/2017 11:15AM Est Patient Height Weight BMI Blood Pressure 5 ft 6 in 127 lbs 20.5 kg/m2 136/64 mm[Hg] 08/31/2017 01:30PM Est Patient Height Weight BMI Blood Pressure 5 ft 6 in 128.8 lbs 20.8 kg/m2 (1) 178/96 mm[Hg] (2) 152/77 mm[Hg] 06/17/2017 12:00PM Est Patient Height Weight BMI Blood Pressure 5 ft 6 in 128.6 lbs 20.8 kg/m2 138/90 mm[Hg] 02/04/2017 11:30AM Est Patient Height Weight BMI Blood Pressure 5 ft 6 in 125 lbs 20.2 kg/m2 124/61 mm[Hg] 01/26/2017 10:00AM Est Patient Height Weight BMI Blood Pressure 5 ft 6 in 124 lbs 20 kg/m2 133/81 mm[Hg] 01/19/2017 09:30AM TCM - High Risk Height Weight BMI Blood Pressure 5 ft 6 in 123.6 lbs 19.9 kg/m2 128/72 mm[Hg] 01/07/2017 10:15AM Est Patient Height Weight BMI Blood Pressure 5 ft 6 in 123 lbs 19.9 kg/m2 142/75 mm[Hg] 10/01/2016 04:15PM Est Patient Height Weight BMI Blood Pressure 5 ft 6 in 131.4 lbs 21.2 kg/m2 133/64 mm[Hg] 07/16/2016 01:30PM Est Patient Height Weight BMI Blood Pressure 5 ft 6 in 130.8 lbs 21.1 kg/m2 149/73 mm[Hg] 06/26/2016 02:30PM Est Patient Height Weight BMI Blood Pressure 5 ft 6 in 128.4 lbs 20.7 kg/m2 169/86 mm[Hg] 05/12/2016 10:00AM POLITICAL ADVISOR/CPX/PROC Height Weight BMI Blood Pressure 5 ft 6 in 124.4 lbs 20.1 kg/m2 177/90 mm[Hg]
--- NOTE | 2017-09-29 14:32 | Operative Report ---
DATE OF PROCEDURE: September 24, 2017 PREOPERATIVE DIAGNOSIS: Right renal pelvic stone. POSTOPERATIVE DIAGNOSIS: Right renal pelvic stone. OPERATIVE PROCEDURE PERFORMED: 1. Cystoscopy. 2. Right retrograde pyelogram. 3. Right uteroscopy with laser lithotripsy. 4. Placement of right ureteral stent. ANESTHESIA: General anesthesia. ESTIMATED BLOOD LOSS: Minimal. INDICATIONS: Ms. Marcella Hernandez is a 72-year-old woman with a history of recurrent nephrolithiasis who presented with right flank pain and was found to have a stone in her right renal pelvis. She now presents for surgical management for this problem. PROCEDURE IN DETAIL: The patient was brought into the operating room, placed in the supine position. After administration of general anesthesia was placed in dorsal lithotomy position, prepped and draped in the usual sterile fashion. Cystourethroscopy was performed using a 22-Iranian cystoscope. The anterior and posterior urethra were noted to be normal. The bladder was entered without difficulty. Upon attention to the bladder, the ureteral orifices were in a normal anatomical position and produced clear efflux. A right retrograde pyelogram was performed using open-ended catheter. This revealed a normal ureter. There was a stone approximately 1 cm in diameter seen in the renal pelvis. There was minimal dilatation of the collecting system on that side and minimal residual space seen in that area. The remainder of the anatomy on that side was unremarkable. Under fluoroscopic guidance a 0.035 wire was placed into the right renal pelvis and a 12-14 ureteral access sheath was placed. Flexible ureteroscopy was then performed. The visualized portion of the proximal ureter was visually normal. The stone was seen filling much of the renal pelvis. The Holmium laser was used to break this up into multiple smaller fragments, many of which were irrigated free. No obvious stone fragments were removed for identification. Once the stone was noted to be multiple small fragments and no obvious obstruction was seen, a 6-Iranian stent was placed such that one coil was in the renal pelvis and the subsequent coil was in the bladder. The string was allowed to exit the urethral meatus. The bladder was then drained in its entirety and cystoscope and sheath removed. The ureteral access sheath had been removed prior to placement of the stent. KUB revealed this to be in good anatomical position. Anesthesia was reversed and patient was transferred to a bed and taken to the postanesthesia care unit in good condition. Of note, the needle and instrument count were correct at the conclusion of the case. Job#: [id number] RICCI
== END | disposition home or self-care (01) ==
LOC: OR 05:00
PROVIDERS: ATTEND Urology
DX: N20.0 Calculus of kidney (principal); N39.0 Urinary tract infection, site not specified; E11.9 Type 2 diabetes mellitus without complications; I25.810 Atherosclerosis of coronary artery bypass graft(s) without angina pectoris; I11.0 Hypertensive heart disease with heart failure; I50.9 Heart failure, unspecified; R00.1 Bradycardia, unspecified; E78.5 Hyperlipidemia, unspecified; M54.9 Dorsalgia, unspecified; M54.2 Cervicalgia; Z88.1 Allergy status to other antibiotic agents; Z88.5 Allergy status to narcotic agent; Z88.2 Allergy status to sulfonamides; Z01.810 Encounter for preprocedural cardiovascular examination; Z01.812 Encounter for preprocedural laboratory examination; Z01.818 Encounter for other preprocedural examination; Z79.4 Long term (current) use of insulin; Z79.02 Long term (current) use of antithrombotics/antiplatelets; Z95.1 Presence of aortocoronary bypass graft; Z87.891 Personal history of nicotine dependence
CPT/HCPCS: 36415 ×2; 52356; 71046; 74420; 80048; 82948; 85025; 93005; C1766; J0696; J1100; J2001; J2250; J2405; Q9967; C2617